=== PATIENT | female | born 1945 | race Caucasian/White ===

== ENCOUNTER 2018-07-08 00:51 | Observation (INO) | payer BC ==
[~2018-07-08] VITALS: Ht 162.6 cm; Wt 71.8 kg
[~2018-07-08 00:51] MED LIST: ACET325; AMIT50; AMIT75 PO; AMITRIPTYLINE; Ativan1 MG PO; Boniva150 MG; Boniva150 MG PO; CIPR500 PO; CYCL10 PO; Cymbalta60 MG PO; DIAZ5 PO; DIPATR PO; DIPH50 PO; DULO30; DULO60; GABA300; GABA800 PO; HYDACE5; HYDACE5 PO; HYDMOR2 PO; LANS30EC PO; LEVFLO500; LISI5; MELO7.5 PO; METPRE4DP PO; METR500; OMEP20ER PO; OMEPRAZOLE MAGN20 MG PO; ONDA8ODT MM; OXYACE5T PO; OXYC1TAB11; PRAM.5 PO; PRED20 PO; PREG150 PO; PROM25 PO; RANI150 PO; RESTLESS LEG MED; RXONDA4ODT MM; SACC250C; TIAG4 PO
[2018-07-08] MEDS ORDERED: PREG100 PO (01:09)
[2018-07-08 01:20] LABS: BASOPHILS ABSOLUTE AUTO 0.06 K/mm3 (0.00-0.23); BASOPHILS PERCENT AUTO 1 % (0-2); EOSINOPHILS ABSOLUTE AUTO 0.35 K/mm3 (0.00-0.68); EOSINOPHILS PERCENT AUTO 4 % (0-6); Hemoglobin 13.9 g/dL (11.5-16.0); IMMATURE GRAN ABSOLUTE AUTO 0.03 K/mm3 (0.00-0.10); IMMATURE GRAN PERCENT AUTO 0 % (0-1); LYMPHOCYTES PERCENT AUTO 33 % (21-46); MONOCYTES ABSOLUTE AUTO 0.79 K/mm3 (0.16-1.47); MONOCYTES PERCENT AUTO 8 % (4-13); Mean Corpuscular HGB 28.4 pg (26.0-34.0); Mean Corpuscular HGB Conc 30.9 g/dL (31.5-36.5); Mean Corpuscular Volume 92 fL (80-100); NEUTROPHILS ABSOLUTE AUTO 5.11 K/mm3 (1.96-9.15); NEUTROPHILS PERCENT AUTO 54 % (41-73); Platelet Count 277 K/mm3 (150-400); RDW Coefficient Variation 15.4 % (11.7-14.2); White Blood Cell Count 9.44 K/mm3 (4.00-11.30)
[2018-07-08 01:40] LABS: Alanine Aminotransfer (ALT/SGP 27 U/L (12-78); Albumin, Blood 4.1 g/dL (3.4-5.0); Albumin/Globulin Ratio 1.1 (0.8-1.8); Alk Phos 73 U/L (50-136); Anion Gap 10 mmol/L (6-16); Aspartate Aminotrans (AST/SGOT 16 U/L (12-37); Bilirubin, Total 0.6 mg/dL (0.1-1.0); Blood Urea Nitrogen 14 mg/dL (8-24); Bun/Creatinine Ratio 17.7 (12.0-20.0); CO2, Blood 22 mmol/L (21-32); Calcium, Blood 8.7 mg/dL (8.5-10.1); Chloride, Blood 110 mmol/L (98-108); Creatinine, Blood 0.79 mg/dL (0.40-1.00); Globulin, Blood 3.9 g/dL (2.2-4.0); Glomerular Filtration Rate >60 (60-); Glucose, Blood 91 mg/dL (70-99); Potassium, Blood 3.7 mmol/L (3.5-5.5); Sodium, Blood 142 mmol/L (136-145); Troponin I <0.015 ng/mL (0.000-0.040)
--- NOTE | 2018-07-08 06:48 | NUR ---
*SHIFT SUMMARY* PATIENT IS ALERT AND ORIENTED. ARRIVED TO ROOM FROM ER VIA STRETCHER. PATIENT AMBULATED FROM STRETCHER TO BED AND THEN BATHROOM. GAIT STEADY. NO COMPLAINTS OF CHEST PAIN OR SOB. PATIENT HAS TELE ON, NSR AT 72. PT ORIENTED TO ROOM. CALL LIGHT IN REACH. BED LOWERED AND LOCKED.
[2018-07-08] MEDS ORDERED: ASPI81CH PO (13:11)
--- NOTE | 2018-07-08 13:35 | NUR ---
SHIFT SUMMARY/DC PT HAS HAD NO ACUTE CHANGES THIS SHIFT, NO CP, MEDICATED 1X FOR CHRONIC PAIN. REVIEWED DC INSTRUCTIONS, PT VERBALIZED UNDERSTANDING. PT WALKED OUT FOR DC W/DAUGHTER & GRANDDAUGHTER @ 1330.
== END 2018-07-08 13:39 | disposition home or self-care (01) ==
LOC: ER 00:51 → MEDS 00:52 → ENPENDDIS 12:28 → MEDS 13:39
PROVIDERS: Emergency Medicine; ADMIT Hospitalist
DX: R07.89 Other chest pain (principal); G25.81 Restless legs syndrome; M79.7 Fibromyalgia; M19.90 Unspecified osteoarthritis, unspecified site; F32.9 Major depressive disorder, single episode, unspecified; K21.9 Gastro-esophageal reflux disease without esophagitis; Z88.8 Allergy status to other drugs, medicaments and biological substances; Z88.5 Allergy status to narcotic agent; Z79.899 Other long term (current) drug therapy; Z98.84 Bariatric surgery status; Z87.19 Personal history of other diseases of the digestive system
CPT/HCPCS: 36415; 71045; 71275; 74175; 80053; 83690; 84484; 85025; 87070; 87081; 93005; 93010; 96372; G0378; J1650; J2405; Q9967

== ENCOUNTER → 2019-08-12 | Outpatient (CLI) | payer BC, OTHER ==
[~2019-08-12] MED LIST changes: +ASPI81CH PO; +PREG100 PO
[2019-08-12 20:19] LABS: Influenza A Negative (NEGATIVE); Influenza B Negative (NEGATIVE)
== END | disposition home or self-care (01) ==
LOC: LAB 17:42 → LAB SHORT 17:42
PROVIDERS: Nurse Practitioner Family
DX: R05 Cough (principal)
CPT/HCPCS: 87804

== ENCOUNTER 2020-04-27 12:48 | Emergency (ER) | payer BC ==
[~2020-04-27] VITALS: Ht 162.6 cm; Wt 72.1 kg
[~2020-04-27 12:48] MED LIST changes: -ASPI81CH PO; +Aspirin EC81 MG PO
[2020-04-27] MEDS ORDERED: OXYCODONE-ACET1 EAC2 PO (14:18)
[2020-04-27] MEDS ORDERED: AMLODIPINE BESYL5 MG PO (14:18)
[2020-04-27] MEDS ORDERED: PRAMIPEXOLE DIHY1 M1 PO (14:18)
[2020-04-27] MEDS ORDERED: Percocet 5-3251 EACH PO (15:10)
== END 2020-04-27 15:34 | disposition home or self-care (01) ==
LOC: ER 12:48
DX: S52.531A Colles' fracture of right radius, initial encounter for closed fracture (principal); S61.511A Laceration without foreign body of right wrist, initial encounter; S50.01XA Contusion of right elbow, initial encounter; Z88.8 Allergy status to other drugs, medicaments and biological substances; Z88.5 Allergy status to narcotic agent; Z79.82 Long term (current) use of aspirin; Z79.899 Other long term (current) drug therapy; Z87.891 Personal history of nicotine dependence; W17.89XA Other fall from one level to another, initial encounter; Y92.008 Other place in unspecified non-institutional (private) residence as the place of occurrence of the external cause
CPT/HCPCS: 29125; 73080; 73110; 96365-59; 96375-59; 99283-25; J0690; J1170; J2405; L3917

== ENCOUNTER 2020-05-03 10:31 | Day surgery (SDC) | payer BC ==
[~2020-05-03] VITALS: Ht 160 cm; Wt 73.6 kg
[~2020-05-03 10:31] MED LIST changes: +AMLODIPINE BESYL5 MG PO; +OXYCODONE-ACET1 EAC2 PO; +PRAMIPEXOLE DIHY1 M1 PO; +Percocet 5-3251 EACH PO
--- NOTE | 2020-05-03 12:16 | NUR ---
05/03/20 1216 Savana Alston SURGEON AWARE OF OPEN AREA ON RIGHT WRIST. SUTURE REMOVED PRIOR TO PREP.
--- NOTE | 2020-05-03 14:22 | NUR ---
05/03/20 1422 FLOWER MADISON PT TO STEP DOWN VIA BED. SBA TO RECLINER. VSS - PT ON ACCESSORY O2 VIA NON REBREATHER NEEDED TO MAINTANI O2 SATS >92%. TOLERATING PO INTAKE AND DENIES NAUSEA AT THIS TIME. PT REPORTING SEVERE PAIN TO RIGHT WRIST. MEDICATED PER ORDERS WITH IV FENTANYL AND PO NORCO. ENGAGED IN DC TEACHING AND ALL QUESTIONS ASKED AND ANSWERED. PT REPORTS PAIN IS IMPROVING. IS AGREEABLE TO GOING HOME.
== END 2020-05-03 14:15 | disposition home or self-care (01) ==
LOC: ORSCSDS 10:31
PROVIDERS: Orthopaedic Surgery
PROC: 0JBG0ZZ Excision of Right Lower Arm Subcutaneous Tissue and Fascia, Open Approach (ICD-10-PCS; principal; 2020-05-03 12:45)
PROC: 0PSH04Z Reposition Right Radius with Internal Fixation Device, Open Approach (ICD-10-PCS; principal; 2020-05-03 12:45)
DX: S52.551A Other extraarticular fracture of lower end of right radius, initial encounter for closed fracture (principal); S61.521A Laceration with foreign body of right wrist, initial encounter; I10 Essential (primary) hypertension; Z87.891 Personal history of nicotine dependence; K21.9 Gastro-esophageal reflux disease without esophagitis; Z79.899 Other long term (current) drug therapy
CPT/HCPCS: A9270; C1713; J0690; J1100; J2250; J2405; J2704; J2795; J3010; J7030; J7120

== ENCOUNTER 2020-05-27 14:38 | Emergency (ER) | payer BC, OTHER ==
[~2020-05-27] VITALS: Ht 157.5 cm; Wt 72.6 kg
[2020-05-27 15:09] LABS: BASOPHILS ABSOLUTE AUTO 0.02 K/mm3 (0.00-0.23); BASOPHILS PERCENT AUTO 0 % (0-2); EOSINOPHILS ABSOLUTE AUTO 0.01 K/mm3 (0.00-0.68); EOSINOPHILS PERCENT AUTO 0 % (0-6); Hematocrit 39.9 % (33.0-51.0); Hemoglobin 13.5 g/dL (11.5-16.0); IMMATURE GRAN ABSOLUTE AUTO 0.04 K/mm3 (0.00-0.10); IMMATURE GRAN PERCENT AUTO 1 % (0-1); LYMPHOCYTES ABSOLUTE AUTO 1.31 K/mm3 (0.84-5.20); LYMPHOCYTES PERCENT AUTO 18 % (21-46); MONOCYTES ABSOLUTE AUTO 0.33 K/mm3 (0.16-1.47); MONOCYTES PERCENT AUTO 5 % (4-13); Mean Corpuscular HGB 30.2 pg (26.0-34.0); Mean Corpuscular HGB Conc 33.8 g/dL (31.5-36.5); Mean Corpuscular Volume 89 fL (80-100); Mean Platelet Volume 10.5 fL (9.1-12.4); NEUTROPHILS ABSOLUTE AUTO 5.61 K/mm3 (1.96-9.15); NEUTROPHILS PERCENT AUTO 77 % (41-73); Platelet Count 245 K/mm3 (150-400); RDW Coefficient Variation 13.7 % (11.7-14.2); RDW Standard Deviation 44.4 fL (35.1-46.3); Red Blood Cell Count 4.47 M/mm3 (3.80-5.20); White Blood Cell Count 7.32 K/mm3 (4.00-11.30)
[2020-05-27 15:37] LABS: Alanine Aminotransfer (ALT/SGP 25 U/L (12-78); Albumin, Blood 3.9 g/dL (3.4-5.0); Alk Phos 120 U/L (50-136); Anion Gap 7 mmol/L (6-16); Aspartate Aminotrans (AST/SGOT 25 U/L (12-37); Bilirubin, Total 1.4 mg/dL (0.1-1.0); Blood Urea Nitrogen 9 mg/dL (8-24); Bun/Creatinine Ratio 13.5 (12.0-20.0); CO2, Blood 25 mmol/L (21-32); Calcium, Blood 9.5 mg/dL (8.5-10.1); Chloride, Blood 104 mmol/L (98-108); Creatinine, Blood 0.67 mg/dL (0.40-1.00); Globulin, Blood 3.9 g/dL (2.2-4.0); Glomerular Filtration Rate >60 (60-); Glucose, Blood 139 mg/dL (70-99); Potassium, Blood 4.1 mmol/L (3.5-5.5); Sodium, Blood 136 mmol/L (136-145); Total Protein, Blood 7.8 g/dL (6.4-8.2); Troponin I <0.015 ng/mL (0.000-0.040)
[2020-05-27 15:37] LABS: Source, Urine Clean Catch
[2020-05-27 16:07] LABS: Appearance, Urine Clear (Clear); Bilirubin, Urine Neg (Neg); Blood, Urine 1+ (Neg); Color, Urine Yellow (P-Yellow); Glucose Qualitative, Urine Neg (Neg); Ketones, Urine 2+ (Neg); Leukocyte Esterase, Urine 1+ (Neg); Nitrite, Urine Neg (Neg); Protein, Urine 2+ (Neg); Urobilinogen, Urine 1+ (Normal); pH, Urine 6.5 (5.0-8.0)
[2020-05-27 16:17] LABS: Bacteria Few /hpf; Red Blood Cells, Urine 0-2 /hpf (0-2); Squamous Epithelial Cells Rare /hpf (Few)
[2020-05-27 18:31] LABS: Free Thyroxine 0.63 ng/dL (0.70-1.60)
[2020-05-27 18:32] LABS: Thyroid Stimulating Hormone 2.37 uIU/mL (0.360-4.800)
[2020-05-27] MEDS ORDERED: Ativan0.5 MG PO (20:19)
[2020-05-27] MEDS ORDERED: CEPH500 PO (20:31)
[2020-05-28] MEDS ORDERED: Percocet 5-3251 EACH PO (10:17)
== END 2020-05-27 20:42 | disposition home or self-care (01) ==
LOC: ER 14:38
PROVIDERS: Physician Assistant
DX: N39.0 Urinary tract infection, site not specified (principal); R53.83 Other fatigue; K21.9 Gastro-esophageal reflux disease without esophagitis; Z79.899 Other long term (current) drug therapy; Z88.5 Allergy status to narcotic agent; Z88.8 Allergy status to other drugs, medicaments and biological substances; Z79.82 Long term (current) use of aspirin; Z87.891 Personal history of nicotine dependence
CPT/HCPCS: 80053; 81001; 84439; 84443; 84484; 85025; 87086; 93005; 93010; 96361-59; 96374-59; 96375-59; 99285-25; A9270; J1885; J2060; J2405; J7030; P9612

== ENCOUNTER 2020-05-28 06:48 | Emergency (ER) | payer BC, OTHER ==
[~2020-05-28] VITALS: Ht 157.5 cm; Wt 68.0 kg
[~2020-05-28 06:48] MED LIST changes: +Ativan0.5 MG PO; +CEPH500 PO
[2020-05-28 08:32] LABS: BASOPHILS ABSOLUTE AUTO 0.02 K/mm3 (0.00-0.23); BASOPHILS PERCENT AUTO 0 % (0-2); EOSINOPHILS ABSOLUTE AUTO 0.05 K/mm3 (0.00-0.68); EOSINOPHILS PERCENT AUTO 1 % (0-6); Hematocrit 39.2 % (33.0-51.0); Hemoglobin 12.9 g/dL (11.5-16.0); IMMATURE GRAN ABSOLUTE AUTO 0.04 K/mm3 (0.00-0.10); IMMATURE GRAN PERCENT AUTO 0 % (0-1); LYMPHOCYTES ABSOLUTE AUTO 1.82 K/mm3 (0.84-5.20); LYMPHOCYTES PERCENT AUTO 20 % (21-46); MONOCYTES ABSOLUTE AUTO 0.76 K/mm3 (0.16-1.47); MONOCYTES PERCENT AUTO 8 % (4-13); Mean Corpuscular HGB 30.1 pg (26.0-34.0); Mean Corpuscular HGB Conc 32.9 g/dL (31.5-36.5); Mean Corpuscular Volume 91 fL (80-100); Mean Platelet Volume 10.4 fL (9.1-12.4); NEUTROPHILS ABSOLUTE AUTO 6.57 K/mm3 (1.96-9.15); NEUTROPHILS PERCENT AUTO 71 % (41-73); Platelet Count 225 K/mm3 (150-400); RDW Coefficient Variation 13.9 % (11.7-14.2); Red Blood Cell Count 4.29 M/mm3 (3.80-5.20); White Blood Cell Count 9.26 K/mm3 (4.00-11.30)
[2020-05-28] MEDS ORDERED: Percocet 5-3251 EACH PO (10:17)
== END 2020-05-28 10:48 | disposition home or self-care (01) ==
LOC: ER 06:48
PROVIDERS: Emergency Medicine
DX: M51.36 Other intervertebral disc degeneration, lumbar region (principal); M47.816 Spondylosis without myelopathy or radiculopathy, lumbar region; K21.9 Gastro-esophageal reflux disease without esophagitis; Z79.899 Other long term (current) drug therapy; Z88.5 Allergy status to narcotic agent; Z88.8 Allergy status to other drugs, medicaments and biological substances; Z87.891 Personal history of nicotine dependence
CPT/HCPCS: 74177; 85025; 96374-59; 96375; 99284-25; J1170; J2060; J2405; J7030; Q9967

== ENCOUNTER 2020-05-29 18:23 | Observation (INO) | payer BC, OTHER ==
[~2020-05-29] VITALS: Ht 167.6 cm; Wt 72.6 kg
[2020-05-29 18:43] LABS: BASOPHILS ABSOLUTE AUTO 0.03 K/mm3 (0.00-0.23); BASOPHILS PERCENT AUTO 0 % (0-2); EOSINOPHILS ABSOLUTE AUTO 0.05 K/mm3 (0.00-0.68); EOSINOPHILS PERCENT AUTO 1 % (0-6); Hematocrit 42.1 % (33.0-51.0); IMMATURE GRAN ABSOLUTE AUTO 0.04 K/mm3 (0.00-0.10); IMMATURE GRAN PERCENT AUTO 0 % (0-1); LYMPHOCYTES ABSOLUTE AUTO 1.73 K/mm3 (0.84-5.20); LYMPHOCYTES PERCENT AUTO 19 % (21-46); MONOCYTES ABSOLUTE AUTO 0.73 K/mm3 (0.16-1.47); MONOCYTES PERCENT AUTO 8 % (4-13); Mean Corpuscular HGB 30.3 pg (26.0-34.0); Mean Corpuscular HGB Conc 33.3 g/dL (31.5-36.5); Mean Corpuscular Volume 91 fL (80-100); NEUTROPHILS ABSOLUTE AUTO 6.51 K/mm3 (1.96-9.15); NEUTROPHILS PERCENT AUTO 72 % (41-73); Platelet Count 290 K/mm3 (150-400); RDW Coefficient Variation 13.8 % (11.7-14.2); Red Blood Cell Count 4.62 M/mm3 (3.80-5.20); White Blood Cell Count 9.09 K/mm3 (4.00-11.30)
[2020-05-29 19:01] LABS: Alanine Aminotransfer (ALT/SGP 32 U/L (12-78); Albumin, Blood 3.9 g/dL (3.4-5.0); Alk Phos 110 U/L (50-136); Anion Gap 6 mmol/L (6-16); Aspartate Aminotrans (AST/SGOT 53 U/L (12-37); Bilirubin, Total 1.1 mg/dL (0.1-1.0); Blood Urea Nitrogen 8 mg/dL (8-24); Bun/Creatinine Ratio 10.8 (12.0-20.0); CO2, Blood 24 mmol/L (21-32); Calcium, Blood 9.1 mg/dL (8.5-10.1); Chloride, Blood 106 mmol/L (98-108); Creatinine, Blood 0.74 mg/dL (0.40-1.00); Globulin, Blood 3.9 g/dL (2.2-4.0); Glomerular Filtration Rate >60 (60-); Glucose, Blood 131 mg/dL (70-99); Potassium, Blood 3.5 mmol/L (3.5-5.5); Sodium, Blood 136 mmol/L (136-145); Total Protein, Blood 7.8 g/dL (6.4-8.2)
[2020-05-29 21:44] LABS: U Amphetamine Screen Not Detected; U Barbituate Screen Not Detected; U Benzodiazapine Screen DETECTED; U Buprenorphine Screen Not Detected; U Cannabinoids Screen Not Detected; U Cocaine Screen Not Detected; U Methadone Screen Not Detected; U Methamphetamine Screen Not Detected; U Opiates Screen Not Detected; U Oxycodone Screen DETECTED; U Phencyclidine Screen Not Detected; U Propoxyphene Screen Not Detected
[2020-05-30 05:45] LABS: BASOPHILS ABSOLUTE AUTO 0.02 K/mm3 (0.00-0.23); BASOPHILS PERCENT AUTO 0 % (0-2); EOSINOPHILS ABSOLUTE AUTO 0.05 K/mm3 (0.00-0.68); EOSINOPHILS PERCENT AUTO 1 % (0-6); Hematocrit 39.2 % (33.0-51.0); Hemoglobin 12.7 g/dL (11.5-16.0); IMMATURE GRAN ABSOLUTE AUTO 0.04 K/mm3 (0.00-0.10); IMMATURE GRAN PERCENT AUTO 1 % (0-1); LYMPHOCYTES ABSOLUTE AUTO 1.39 K/mm3 (0.84-5.20); LYMPHOCYTES PERCENT AUTO 18 % (21-46); MONOCYTES ABSOLUTE AUTO 0.76 K/mm3 (0.16-1.47); MONOCYTES PERCENT AUTO 10 % (4-13); Mean Corpuscular HGB 29.7 pg (26.0-34.0); Mean Corpuscular HGB Conc 32.4 g/dL (31.5-36.5); Mean Corpuscular Volume 92 fL (80-100); Mean Platelet Volume 10.3 fL (9.1-12.4); NEUTROPHILS ABSOLUTE AUTO 5.68 K/mm3 (1.96-9.15); NEUTROPHILS PERCENT AUTO 72 % (41-73); Platelet Count 232 K/mm3 (150-400); RDW Coefficient Variation 13.9 % (11.7-14.2); RDW Standard Deviation 46.3 fL (35.1-46.3); Red Blood Cell Count 4.27 M/mm3 (3.80-5.20); White Blood Cell Count 7.94 K/mm3 (4.00-11.30)
[2020-05-30 06:05] LABS: Alanine Aminotransfer (ALT/SGP 31 U/L (12-78); Albumin, Blood 3.4 g/dL (3.4-5.0); Alk Phos 98 U/L (50-136); Anion Gap 7 mmol/L (6-16); Aspartate Aminotrans (AST/SGOT 49 U/L (12-37); Blood Urea Nitrogen 9 mg/dL (8-24); Bun/Creatinine Ratio 11.6 (12.0-20.0); CO2, Blood 25 mmol/L (21-32); Calcium, Blood 8.7 mg/dL (8.5-10.1); Chloride, Blood 107 mmol/L (98-108); Creatinine, Blood 0.78 mg/dL (0.40-1.00); Globulin, Blood 3.5 g/dL (2.2-4.0); Glomerular Filtration Rate >60 (60-); Glucose, Blood 109 mg/dL (70-99); Potassium, Blood 3.3 mmol/L (3.5-5.5); Sodium, Blood 139 mmol/L (136-145); Total Protein, Blood 6.9 g/dL (6.4-8.2)
[2020-05-30] MEDS ORDERED: ROPINIROLE HCL1 MG PO (11:48)
[2020-05-30] MEDS ORDERED: PREGABALIN100 MG PO (11:48)
[2020-05-30 12:59] LABS: Source, Urine Clean Catch
[2020-05-30 13:08] LABS: Appearance, Urine Clear (Clear); Blood, Urine Neg (Neg); Color, Urine Yellow (P-Yellow); Glucose Qualitative, Urine Neg (Neg); Ketones, Urine Neg (Neg); Leukocyte Esterase, Urine Neg (Neg); Nitrite, Urine Neg (Neg); Protein, Urine 2+ (Neg); Urobilinogen, Urine 2+ (Normal)
[2020-05-30 13:32] LABS: Bilirubin, Urine 1+ (Neg)
[2020-05-30 13:33] LABS: Bacteria Rare /hpf; Mucus Light (0-Heavy); Red Blood Cells, Urine 0-2 /hpf (0-2); Squamous Epithelial Cells Few /hpf (Few); White Blood Cells, Urine 0-2 /hpf (0-5)
[2020-05-30] MEDS ORDERED: Percocet 5-3251 EACH PO (17:32)
[2020-05-30] MEDS ORDERED: DULO30 PO (17:34)
[2020-05-30] MEDS ORDERED: DULO60 PO (17:35)
[2020-05-30] MEDS ORDERED: BENZ100A PO (17:35)
[2020-05-30] MEDS ORDERED: AMIT75 PO (17:36)
--- NOTE | 2020-05-30 17:56 | NUR ---
PATIENT IS ALERT AND ORIENTED AND COOPERATIVE WITH CARE. THE PATIENT HAS BENE TREATED FOR PAIN PER EMAR. TREATED FOR HYPERTENSION PER EMAR. THE PATIENT'S FAMILY WAS AT THE BEDSIDE TODAY. THE PATIENT HAS TOLERATED WATER AND JELLO. WILL CONTINUE TO MONITOR.
[2020-05-31 05:11] LABS: BASOPHILS ABSOLUTE AUTO 0.03 K/mm3 (0.00-0.23); BASOPHILS PERCENT AUTO 0 % (0-2); EOSINOPHILS ABSOLUTE AUTO 0.11 K/mm3 (0.00-0.68); EOSINOPHILS PERCENT AUTO 1 % (0-6); Hematocrit 37.6 % (33.0-51.0); Hemoglobin 12.4 g/dL (11.5-16.0); IMMATURE GRAN ABSOLUTE AUTO 0.04 K/mm3 (0.00-0.10); IMMATURE GRAN PERCENT AUTO 0 % (0-1); LYMPHOCYTES ABSOLUTE AUTO 2.45 K/mm3 (0.84-5.20); LYMPHOCYTES PERCENT AUTO 25 % (21-46); MONOCYTES ABSOLUTE AUTO 1.08 K/mm3 (0.16-1.47); MONOCYTES PERCENT AUTO 11 % (4-13); Mean Corpuscular HGB 29.8 pg (26.0-34.0); Mean Corpuscular Volume 90 fL (80-100); Mean Platelet Volume 10.2 fL (9.1-12.4); NEUTROPHILS ABSOLUTE AUTO 6.07 K/mm3 (1.96-9.15); NEUTROPHILS PERCENT AUTO 62 % (41-73); Platelet Count 255 K/mm3 (150-400); RDW Coefficient Variation 13.8 % (11.7-14.2); RDW Standard Deviation 45.1 fL (35.1-46.3); Red Blood Cell Count 4.16 M/mm3 (3.80-5.20); White Blood Cell Count 9.78 K/mm3 (4.00-11.30)
[2020-05-31 05:42] LABS: Alanine Aminotransfer (ALT/SGP 31 U/L (12-78); Albumin, Blood 3.5 g/dL (3.4-5.0); Alk Phos 97 U/L (50-136); Anion Gap 7 mmol/L (6-16); Aspartate Aminotrans (AST/SGOT 43 U/L (12-37); Bilirubin, Total 1.1 mg/dL (0.1-1.0); Blood Urea Nitrogen 10 mg/dL (8-24); Bun/Creatinine Ratio 13.1 (12.0-20.0); C-REACTIVE PROTEIN, EXT RANGE 0.347 mg/dL (0.000-0.300); CO2, Blood 25 mmol/L (21-32); Calcium, Blood 8.5 mg/dL (8.5-10.1); Chloride, Blood 105 mmol/L (98-108); Creatinine, Blood 0.76 mg/dL (0.40-1.00); Globulin, Blood 3.5 g/dL (2.2-4.0); Glomerular Filtration Rate >60 (60-); Glucose, Blood 102 mg/dL (70-99); Sodium, Blood 137 mmol/L (136-145); Triiodothyronine, Free 1.48 pg/mL (2.18-3.98)
[2020-05-31 14:11] LABS: ANA DIRECT Positive (Negative); ANTI-DNA (DS) AB QN 1 IU/mL (0-9); RNP ANTIBODIES >8.0 AI (0.0-0.9); SJOGREN'S ANTI-SS-A <0.2 AI (0.0-0.9); SJOGREN'S ANTI-SS-B <0.2 AI (0.0-0.9); SMITH ANTIBODIES <0.2 AI (0.0-0.9)
--- NOTE | 2020-05-31 15:51 | NUR ---
Spiritual care visit conducted. Patient is resting but will chime in on conversation every now and then. Patient's spouse, Shade, tells me about his concerns regarding patient's health and what he hopes happens moving forward (mainly to find the cause of her pain and address it). Shade then talks about his careers in truck unloader, building hot rods and powder coating. He shares about his three grown children and their families. He also talks about their [employer]ist jacquelin and the strength patient gets from it. I normalize their experience, reinforce helpful attitudes and provide therapeutic listening and prayer. Patient responds well and shows signs of increased peace. I will continue to remain available to patient and family.
--- NOTE | 2020-05-31 20:00 | NUR ---
late entry for 62905/31/20. 74 year old female admitted with acute back pain & altered loc. She had MRIS of spine & has DDD with new pain reported in last week. PT slightly confused & calls for pain meds at 3/10 rating. She has fibromyalgia & lupus on multiple meds to treat at home. Most of meds held to promote LOC clearing. Kpad provided & PT on toradol & 1 percocet 5 mg and 5 mg flexeril to treat acute back pain. Poor oral intake fluids & aleternatives offered. Recent fall with rt wrist fx with surgical repair per PT incisions healed. Denies acute pain to rt wrist. Fall precautions continued.
--- NOTE | 2020-06-01 04:22 | NUR ---
74 year old Female continues on fall precautions after fall with rt wrist fx 3 weeks prior to admission. 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 Appetite continues very poor. PT had BM yesterday & voids more than prior shift. Up to bathroom with steady gait. Medicated with PRN percoset 5 mg x 2 in addition to scheduled toradol & flexeril 5 mg. Less confused flat affect. Has supportive family, 3 DTRs & Spouse.
[2020-06-01 04:41] LABS: BASOPHILS ABSOLUTE AUTO 0.04 K/mm3 (0.00-0.23); BASOPHILS PERCENT AUTO 1 % (0-2); EOSINOPHILS ABSOLUTE AUTO 0.31 K/mm3 (0.00-0.68); EOSINOPHILS PERCENT AUTO 4 % (0-6); Hematocrit 35.7 % (33.0-51.0); Hemoglobin 11.6 g/dL (11.5-16.0); IMMATURE GRAN ABSOLUTE AUTO 0.02 K/mm3 (0.00-0.10); IMMATURE GRAN PERCENT AUTO 0 % (0-1); LYMPHOCYTES ABSOLUTE AUTO 2.33 K/mm3 (0.84-5.20); LYMPHOCYTES PERCENT AUTO 33 % (21-46); MONOCYTES ABSOLUTE AUTO 0.72 K/mm3 (0.16-1.47); MONOCYTES PERCENT AUTO 10 % (4-13); Mean Corpuscular HGB 29.9 pg (26.0-34.0); Mean Corpuscular HGB Conc 32.5 g/dL (31.5-36.5); Mean Corpuscular Volume 92 fL (80-100); Mean Platelet Volume 9.9 fL (9.1-12.4); NEUTROPHILS ABSOLUTE AUTO 3.61 K/mm3 (1.96-9.15); NEUTROPHILS PERCENT AUTO 51 % (41-73); Platelet Count 216 K/mm3 (150-400); RDW Coefficient Variation 13.9 % (11.7-14.2); RDW Standard Deviation 46.4 fL (35.1-46.3); Red Blood Cell Count 3.88 M/mm3 (3.80-5.20); White Blood Cell Count 7.03 K/mm3 (4.00-11.30)
[2020-06-01 05:01] LABS: Alanine Aminotransfer (ALT/SGP 28 U/L (12-78); Albumin, Blood 3.2 g/dL (3.4-5.0); Alk Phos 86 U/L (50-136); Anion Gap 5 mmol/L (6-16); Aspartate Aminotrans (AST/SGOT 39 U/L (12-37); Bilirubin, Total 1.1 mg/dL (0.1-1.0); Blood Urea Nitrogen 9 mg/dL (8-24); Bun/Creatinine Ratio 11.1 (12.0-20.0); CO2, Blood 27 mmol/L (21-32); Calcium, Blood 8.3 mg/dL (8.5-10.1); Chloride, Blood 104 mmol/L (98-108); Creatinine, Blood 0.81 mg/dL (0.40-1.00); Globulin, Blood 3.1 g/dL (2.2-4.0); Glomerular Filtration Rate >60 (60-); Glucose, Blood 94 mg/dL (70-99); Potassium, Blood 3.3 mmol/L (3.5-5.5); Sodium, Blood 136 mmol/L (136-145); Total Protein, Blood 6.3 g/dL (6.4-8.2)
--- NOTE | 2020-06-01 18:22 | NUR ---
PT HAS BEEN DOING BETTER THIS SHIFT. PATIENT HAVING BETTER RESULTS WITH TORADOL TO RELIEVE HER BACK PAIN. PT IS ALERT AND ORIENTED AND ABLE TO EXPRESS ANY NEEDS. AT BEDSIDE. PT WAS ABLE TO SHOWER SELF THIS SHIFT. NO ACUTE CHANGES TO PT. CALL LIGHT WITHIN REACH.
[2020-06-02 05:31] LABS: Alanine Aminotransfer (ALT/SGP 26 U/L (12-78); Albumin, Blood 3.1 g/dL (3.4-5.0); Alk Phos 84 U/L (50-136); Anion Gap 7 mmol/L (6-16); Aspartate Aminotrans (AST/SGOT 31 U/L (12-37); Bilirubin, Total 0.9 mg/dL (0.1-1.0); Blood Urea Nitrogen 13 mg/dL (8-24); CO2, Blood 25 mmol/L (21-32); Calcium, Blood 8.3 mg/dL (8.5-10.1); Chloride, Blood 106 mmol/L (98-108); Creatinine, Blood 0.81 mg/dL (0.40-1.00); Glomerular Filtration Rate >60 (60-); Glucose, Blood 91 mg/dL (70-99); Potassium, Blood 3.4 mmol/L (3.5-5.5); Sodium, Blood 138 mmol/L (136-145); Total Protein, Blood 6.1 g/dL (6.4-8.2)
--- NOTE | 2020-06-02 05:32 | NUR ---
PT continues with CO mod back pain despite toradol 30 mg IV Q 6 hours. Med with percocet 5 mg x 2 with helpful effect. Able to aMBULATE WELL INDEP WITH STEADY GAIT. pt HAS LUPUS X YEARS KNOWN. SHE CONTINUES TO HAVE POOR APPETITE BUT BETTER THAN 2 PRIOR NIGHTS. She is voiding having BMS & denies nausea.
[2020-06-02] MEDS ORDERED: CYCLOBENZAPRINE5 MG PO (10:57)
[2020-06-02] MEDS ORDERED: EUTHYROX50 MCG PO (10:57)
[2020-06-02] MEDS ORDERED: LIOT5 PO (10:58)
[2020-06-02] MEDS ORDERED: LIDOCAINE1 EAC1 TOP (10:58)
--- NOTE | 2020-06-02 11:14 | NUR ---
DISCHARGE INSTRUCTIONS REVIEWED WITH PT. IV DC'D INTACT. RX FAXED TO [facility] [address] AND HARD SCRIPT FOR PERCOCET GIVEN TO PT. PT UP INDEP TO BATHROOM AND ONLY MINIMAL PAIN THIS AM TO LOWER BACK. PT HAS AN APPT SATURDAY WITH NEW PCP EMILIANO. PT AWAITING RIDE HOME AT THIS TIME.
--- NOTE | 2020-06-02 11:30 | NUR ---
PT DC'D HOME AT 1125, ESCORTED OUT VIA W/C TO D/C WITH .
== END 2020-06-02 11:26 | disposition home health service (06) ==
LOC: ER 18:23 → ERHOLD 18:24 → MEDS 05-30 00:40 → ERHOLD 05-30 00:40 → ER 05-30 00:40 → MEDS 05-30 14:36 → ERHOLD 05-30 14:36 → MEDS 06-02 11:26
PROVIDERS: Emergency Medicine; Internal Medicine; Physician Assistant; ADMIT Physician Assistant
DX: G93.40 Encephalopathy, unspecified (principal); M54.5 Low back pain; F32.9 Major depressive disorder, single episode, unspecified; M79.7 Fibromyalgia; I10 Essential (primary) hypertension; R79.89 Other specified abnormal findings of blood chemistry; G25.81 Restless legs syndrome; E86.0 Dehydration; Z88.5 Allergy status to narcotic agent; Z88.8 Allergy status to other drugs, medicaments and biological substances; Z87.891 Personal history of nicotine dependence
CPT/HCPCS: 36415; 70450; 72146; 72158; 80053; 81001; 83605; 84443; 84481; 85025; 85651; 86038; 86140; 86225; 86235; 96372; 96374-59; 96375; 96376; 97110; 97116; 97161; 97165; 97535; 99285-25; A9270; A9579; G0378; J0360; J1170; J1650; J1885; J2405; J7030; Q2038

== ENCOUNTER 2020-09-13 18:16 | Emergency (ER) | payer BC, OTHER ==
[~2020-09-13] VITALS: Ht 167.6 cm; Wt 65.8 kg
[~2020-09-13 18:16] MED LIST changes: +BENZ100A PO; +CYCLOBENZAPRINE5 MG PO; +DULO30 PO; +DULO60 PO; +EUTHYROX50 MCG PO; +LIDOCAINE1 EAC1 TOP; +LIOT5 PO; +PREGABALIN100 MG PO; +ROPINIROLE HCL1 MG PO
[2020-09-13 19:04] LABS: BASOPHILS ABSOLUTE AUTO 0.01 K/mm3 (0.00-0.23); BASOPHILS PERCENT AUTO 0 % (0-2); EOSINOPHILS ABSOLUTE AUTO 0.01 K/mm3 (0.00-0.68); EOSINOPHILS PERCENT AUTO 0 % (0-6); Hematocrit 41.9 % (33.0-51.0); Hemoglobin 13.8 g/dL (11.5-16.0); IMMATURE GRAN ABSOLUTE AUTO 0.02 K/mm3 (0.00-0.10); IMMATURE GRAN PERCENT AUTO 0 % (0-1); LYMPHOCYTES PERCENT AUTO 22 % (21-46); MONOCYTES PERCENT AUTO 10 % (4-13); Mean Corpuscular HGB 30.4 pg (26.0-34.0); Mean Corpuscular HGB Conc 32.9 g/dL (31.5-36.5); Mean Corpuscular Volume 92 fL (80-100); Mean Platelet Volume 10.9 fL (9.1-12.4); NEUTROPHILS ABSOLUTE AUTO 3.31 K/mm3 (1.96-9.15); NEUTROPHILS PERCENT AUTO 67 % (41-73); Platelet Count 161 K/mm3 (150-400); RDW Coefficient Variation 14.2 % (11.7-14.2); RDW Standard Deviation 48.2 fL (35.1-46.3); Red Blood Cell Count 4.54 M/mm3 (3.80-5.20); White Blood Cell Count 4.95 K/mm3 (4.00-11.30)
[2020-09-13 19:24] LABS: Alanine Aminotransfer (ALT/SGP 33 U/L (12-78); Albumin, Blood 3.6 g/dL (3.4-5.0); Albumin/Globulin Ratio 0.8 (0.8-1.8); Alk Phos 101 U/L (50-136); Anion Gap 7 mmol/L (6-16); Aspartate Aminotrans (AST/SGOT 38 U/L (12-37); Bilirubin, Total 0.6 mg/dL (0.1-1.0); Blood Urea Nitrogen 7 mg/dL (8-24); Bun/Creatinine Ratio 8.3 (12.0-20.0); CO2, Blood 23 mmol/L (21-32); Calcium, Blood 9.3 mg/dL (8.5-10.1); Chloride, Blood 109 mmol/L (98-108); Creatinine, Blood 0.85 mg/dL (0.40-1.00); Globulin, Blood 4.4 g/dL (2.2-4.0); Glomerular Filtration Rate >60 (60-); Glucose, Blood 151 mg/dL (70-99); Potassium, Blood 3.7 mmol/L (3.5-5.5); Sodium, Blood 139 mmol/L (136-145); Troponin I <0.015 ng/mL (0.000-0.040)
== END 2020-09-13 21:41 | disposition left against medical advice (07) ==
LOC: ER 18:16
PROVIDERS: Emergency Medicine
DX: Z53.21 Procedure and treatment not carried out due to patient leaving prior to being seen by health care provider (principal)
CPT/HCPCS: 36415; 71046; 80053; 83690; 84484; 85025; 93005; 93010; 99283-25

== ENCOUNTER 2021-04-04 07:11 | Day surgery (SDC) | payer BC ==
[~2021-04-04] VITALS: Ht 160 cm; Wt 71.3 kg
== END 2021-04-04 10:36 | disposition home or self-care (01) ==
LOC: ORSCSDS 07:11
PROVIDERS: Orthopaedic Surgery
PROC: 0XP60YZ Removal of Other Device from Right Upper Extremity, Open Approach (ICD-10-PCS; principal; 2021-04-04 08:30)
DX: T84.84XA Pain due to internal orthopedic prosthetic devices, implants and grafts, initial encounter (principal); I10 Essential (primary) hypertension; M79.7 Fibromyalgia; M19.90 Unspecified osteoarthritis, unspecified site; Z79.82 Long term (current) use of aspirin; Z79.899 Other long term (current) drug therapy
CPT/HCPCS: 93005; 93010; A9270; J0690; J1100; J1885; J2405; J2704; J2795; J3010; J7120

== ENCOUNTER 2021-05-02 18:12 | Inpatient (IN) | payer MEDICARE, BC ==
[~2021-05-02] VITALS: Ht 162.6 cm; Wt 73.2 kg
[~2021-05-02 18:12] MED LIST changes: -EUTHYROX50 MCG PO
[2021-05-02 19:26] LABS: BASOPHILS ABSOLUTE AUTO 0.03 K/mm3 (0.00-0.23); BASOPHILS PERCENT AUTO 0 % (0-2); EOSINOPHILS ABSOLUTE AUTO 0.09 K/mm3 (0.00-0.68); EOSINOPHILS PERCENT AUTO 1 % (0-6); Hematocrit 42.4 % (33.0-51.0); Hemoglobin 13.6 g/dL (11.5-16.0); IMMATURE GRAN ABSOLUTE AUTO 0.04 K/mm3 (0.00-0.10); IMMATURE GRAN PERCENT AUTO 0 % (0-1); LYMPHOCYTES ABSOLUTE AUTO 0.65 K/mm3 (0.84-5.20); LYMPHOCYTES PERCENT AUTO 5 % (21-46); MONOCYTES ABSOLUTE AUTO 0.59 K/mm3 (0.16-1.47); MONOCYTES PERCENT AUTO 5 % (4-13); Mean Corpuscular HGB 29.2 pg (26.0-34.0); Mean Corpuscular HGB Conc 32.1 g/dL (31.5-36.5); Mean Corpuscular Volume 91 fL (80-100); Mean Platelet Volume 11.1 fL (9.1-12.4); NEUTROPHILS PERCENT AUTO 89 % (41-73); Platelet Count 254 K/mm3 (150-400); RDW Coefficient Variation 14.3 % (11.7-14.2); RDW Standard Deviation 47.8 fL (35.1-46.3); Red Blood Cell Count 4.65 M/mm3 (3.80-5.20)
[2021-05-02 19:41] LABS: Alanine Aminotransfer (ALT/SGP 33 U/L (12-78); Albumin, Blood 3.6 g/dL (3.4-5.0); Albumin/Globulin Ratio 0.9 (0.8-1.8); Alk Phos 115 U/L (50-136); Anion Gap 7 mmol/L (6-16); Aspartate Aminotrans (AST/SGOT 39 U/L (12-37); Bilirubin, Total 1.3 mg/dL (0.1-1.0); Blood Urea Nitrogen 20 mg/dL (8-24); Bun/Creatinine Ratio 25.4 (12.0-20.0); CO2, Blood 24 mmol/L (21-32); Calcium, Blood 8.8 mg/dL (8.5-10.1); Chloride, Blood 106 mmol/L (98-108); Creatinine, Blood 0.79 mg/dL (0.40-1.00); Globulin, Blood 4.2 g/dL (2.2-4.0); Glomerular Filtration Rate >60 (60-); Glucose, Blood 154 mg/dL (70-99); Potassium, Blood 4.2 mmol/L (3.5-5.5); Sodium, Blood 137 mmol/L (136-145); Total Protein, Blood 7.8 g/dL (6.4-8.2)
[2021-05-02 20:06] LABS: International Normalized Ratio 1.01; Prothrombin Time Results 10.6 Sec (9.7-11.5)
[2021-05-02] MEDS ORDERED: PROM25 PO (20:37)
[2021-05-02] MEDS ORDERED: AZIT500 PO (20:37)
[2021-05-02] MEDS ORDERED: BENZ100A PO (20:37)
--- NOTE | 2021-05-02 23:18 | NUR ---
Transfer report from DIGITAL RESEARCH ANALYSTGINNY Diaz on 75 year old Female being admitted with SBO after getting abd CT for abd pain N & V & reported fecaloid matter. Will be NPO NG tube to LISX which will need to be placed. Tele monitoring, pain meds, surgical consult. HX of MRSA 2019 will rule out, covid 19 neg. Await admission.
[2021-05-03 01:30] LABS: Source, Urine Clean Catch
[2021-05-03 01:51] LABS: Appearance, Urine Clear (Clear); Bilirubin, Urine Neg (Neg); Blood, Urine 1+ (Neg); Color, Urine Yellow (P-Yellow); Glucose Qualitative, Urine Neg (Neg); Ketones, Urine 1+ (Neg); Leukocyte Esterase, Urine Neg (Neg); Nitrite, Urine Neg (Neg); Protein, Urine 1+ (Neg); Specific Gravity, Urine 1.015 (1.003-1.022); Urobilinogen, Urine NORM (Normal)
[2021-05-03 02:11] LABS: Bacteria Rare /hpf; Red Blood Cells, Urine 0-2 /hpf (0-2); Squamous Epithelial Cells Rare /hpf (Few); White Blood Cells, Urine 0-2 /hpf (0-5)
--- NOTE | 2021-05-03 04:14 | NUR ---
PT admitted for SBO & ER was inable to place NG tube. I attempted twice in each nare & was unable to pass ng tube down ??? to anatomy? 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 Reports 1 other SBO very remote which resolved reportedly without surgical intervention or NG tube placement. bill recapitulation clerk informed of unsuccessful attempts to pass NG tube. PT has surgical consult to be called this AM. Medicated for pain & nausea with mild helpful effect. PT reports emisis at home over 6 gallons of brown fecalith matter. Possible aspirated some emisis with cxr showing possible pnemonitis. Room air, on tele SR 82.
[2021-05-03 04:47] LABS: BASOPHILS ABSOLUTE AUTO 0.04 K/mm3 (0.00-0.23); BASOPHILS PERCENT AUTO 0 % (0-2); EOSINOPHILS PERCENT AUTO 0 % (0-6); Hematocrit 41.2 % (33.0-51.0); Hemoglobin 13.2 g/dL (11.5-16.0); IMMATURE GRAN ABSOLUTE AUTO 0.03 K/mm3 (0.00-0.10); IMMATURE GRAN PERCENT AUTO 0 % (0-1); LYMPHOCYTES ABSOLUTE AUTO 1.68 K/mm3 (0.84-5.20); LYMPHOCYTES PERCENT AUTO 10 % (21-46); MONOCYTES ABSOLUTE AUTO 1.04 K/mm3 (0.16-1.47); MONOCYTES PERCENT AUTO 6 % (4-13); Mean Corpuscular HGB 29.5 pg (26.0-34.0); Mean Corpuscular Volume 92 fL (80-100); Mean Platelet Volume 10.6 fL (9.1-12.4); NEUTROPHILS ABSOLUTE AUTO 13.73 K/mm3 (1.96-9.15); NEUTROPHILS PERCENT AUTO 83 % (41-73); Platelet Count 218 K/mm3 (150-400); RDW Coefficient Variation 14.5 % (11.7-14.2); RDW Standard Deviation 48.8 fL (35.1-46.3); Red Blood Cell Count 4.47 M/mm3 (3.80-5.20); White Blood Cell Count 16.52 K/mm3 (4.00-11.30)
[2021-05-03 05:25] LABS: Alanine Aminotransfer (ALT/SGP 28 U/L (12-78); Albumin, Blood 3.4 g/dL (3.4-5.0); Albumin/Globulin Ratio 0.9 (0.8-1.8); Alk Phos 101 U/L (50-136); Anion Gap 11 mmol/L (6-16); Aspartate Aminotrans (AST/SGOT 29 U/L (12-37); Bilirubin, Total 1.2 mg/dL (0.1-1.0); Blood Urea Nitrogen 16 mg/dL (8-24); Bun/Creatinine Ratio 19.3 (12.0-20.0); CO2, Blood 22 mmol/L (21-32); Calcium, Blood 8.5 mg/dL (8.5-10.1); Chloride, Blood 106 mmol/L (98-108); Creatinine, Blood 0.83 mg/dL (0.40-1.00); Globulin, Blood 3.6 g/dL (2.2-4.0); Glomerular Filtration Rate >60 (60-); Glucose, Blood 141 mg/dL (70-99); Potassium, Blood 4.2 mmol/L (3.5-5.5); Sodium, Blood 139 mmol/L (136-145)
--- NOTE | 2021-05-03 11:52 | NUR ---
I went to visit the patient in her [facility] room 312, patient was alert and pleasant. She states she lives independent, without any DME prior to admit, with her in an RV on her daughter's property. An apartment for her and her is currently being built on the property. She states there is no preference for home health services or prison facilities. She states she still drives but, her will be able to provide transportation upon discharge. Patient has been informed of the no visitor policy. I also gave her my work cell phone number for direct communication.
--- NOTE | 2021-05-03 18:21 | NUR ---
PT SUMMARY: PT REMAINED ALERT AND ORIENTED X3 AT BASELINE. VITALS HRR SR AT 70'S ON TELE, BP SYSTOLIC 150-160'S, SATS ABOVE 95% ON RA, AFEBRILE. PT C/O BACK AND MILD ABD PAIN FOR THE SHIFT 08/22 MEDICATED WITH FENTANYL 50MCGS IV TWICE AND WAS EFFECTIVE. PT SBA FOR TRANSFERS FOR TOILETING. PT HAD SMALL BOWEL WITH XRAY WITH CONRAST HAD NAUSEA WHEN PT WAS TAKEN BACK TO THE ROOM REGLAN IV GIVEN X1 AND WAS EFFECTIVE, DR HARRIS CAME AND EVALUATED PT TODAY AND CLEARED PT FOR NO SURGICAL INTERVENTION AT THIS TIME, DIET RESUMED TO START PT ON CLEAR DIET TO ADVANCE TOLERATED. PT ALSO HAD A NORMAL BM BEFORE XRAY THEN MULTIPLE EPISODES OF DIARRHEA AFTER PO CONTRAST WAS CONSUMED. PT STATED SHE FELT MUCH BETTER AFTER HAVING BM'S. NO EMESIS REPORTED. DAUGHTER BAM DOUGHERTY WAS GIVEN UPDATE REGARDING THE PT. NO OTHER ISSUES REPORTED PT ABLE TO MAKE NEEDS KNOWN. WILL REPORT TO ONCOMING SHIFT
--- NOTE | 2021-05-04 04:38 | NUR ---
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 PT had small bowel follow through with oral contrast & had multiple stools afterward. On clear liquid diet with less than 50% taken. Mild nausea no vomiting, reglan helpful Medicated for primary low back pain x 2 with fentanyl 50 mcg x 2 with helpful effect. Kpad also provided with helpful effect.
[2021-05-04 07:55] LABS: BASOPHILS ABSOLUTE AUTO 0.03 K/mm3 (0.00-0.23); BASOPHILS PERCENT AUTO 0 % (0-2); EOSINOPHILS ABSOLUTE AUTO 0.19 K/mm3 (0.00-0.68); EOSINOPHILS PERCENT AUTO 2 % (0-6); Hematocrit 34.1 % (33.0-51.0); Hemoglobin 10.8 g/dL (11.5-16.0); IMMATURE GRAN ABSOLUTE AUTO 0.04 K/mm3 (0.00-0.10); IMMATURE GRAN PERCENT AUTO 0 % (0-1); LYMPHOCYTES ABSOLUTE AUTO 1.87 K/mm3 (0.84-5.20); LYMPHOCYTES PERCENT AUTO 19 % (21-46); MONOCYTES ABSOLUTE AUTO 0.76 K/mm3 (0.16-1.47); MONOCYTES PERCENT AUTO 8 % (4-13); Mean Corpuscular HGB 29.5 pg (26.0-34.0); Mean Corpuscular HGB Conc 31.7 g/dL (31.5-36.5); Mean Corpuscular Volume 93 fL (80-100); Mean Platelet Volume 10.8 fL (9.1-12.4); NEUTROPHILS ABSOLUTE AUTO 6.94 K/mm3 (1.96-9.15); NEUTROPHILS PERCENT AUTO 71 % (41-73); Platelet Count 200 K/mm3 (150-400); RDW Coefficient Variation 14.5 % (11.7-14.2); RDW Standard Deviation 50.3 fL (35.1-46.3); Red Blood Cell Count 3.66 M/mm3 (3.80-5.20); White Blood Cell Count 9.83 K/mm3 (4.00-11.30)
[2021-05-04 08:32] LABS: Alanine Aminotransfer (ALT/SGP 20 U/L (12-78); Albumin, Blood 2.9 g/dL (3.4-5.0); Alk Phos 79 U/L (50-136); Anion Gap 8 mmol/L (6-16); Aspartate Aminotrans (AST/SGOT 21 U/L (12-37); Bilirubin, Total 0.9 mg/dL (0.1-1.0); Blood Urea Nitrogen 7 mg/dL (8-24); Bun/Creatinine Ratio 10.3 (12.0-20.0); CO2, Blood 24 mmol/L (21-32); Calcium, Blood 8.5 mg/dL (8.5-10.1); Chloride, Blood 111 mmol/L (98-108); Creatinine, Blood 0.68 mg/dL (0.40-1.00); Glomerular Filtration Rate >60 (60-); Glucose, Blood 107 mg/dL (70-99); Potassium, Blood 3.4 mmol/L (3.5-5.5); Sodium, Blood 143 mmol/L (136-145); Total Protein, Blood 5.9 g/dL (6.4-8.2)
[2021-05-04] MEDS ORDERED: ONDA4ODT MM (16:20)
--- NOTE | 2021-05-04 16:28 | NUR ---
Per chart review with Dr. Lynne, patient is appropriate for discharge. I went to visit the patient in her room to coordinate discharge. Patient's will be providing transportation home, she states she has spoke with him recently and let him know. I scheduled a hospital follow up with Dr. Bienvenido Dougherty next week on Sunday, May 09, 2021 at 12:00 PM. Patient confirmed time and date work well for her. Felicitas states she is feeling much better, denies barriers to discharge, and feels safe to return home.
[2021-05-04] MEDS ORDERED: ROPINIROLE HCL2 M1 PO (16:33)
[2021-05-04] MEDS ORDERED: MOBIC15 MG PO (16:34)
[2021-05-04] MEDS ORDERED: EUTHYROX50 MCG PO (16:34)
[2021-05-04] MEDS ORDERED: BENADRYL25 MG PO (16:37)
[2021-05-04] MEDS ORDERED: AMLO5 PO (17:15)
[2021-05-04] MEDS ORDERED: Cyclobenzaprine5 MG PO (17:16)
--- NOTE | 2021-05-04 18:53 | NUR ---
PT EXPRESSED UNDERSTANDING OF D/C TEACHING DENEIS FURTHER QUESTIONS ABOUT DC TEACHING OR NEW MEDICATION ORDERS
== END 2021-05-04 18:34 | disposition home or self-care (01) | DRG 388 ==
LOC: ER 18:12 → MEDS 23:31
PROVIDERS: Emergency Medicine; Family Medicine; ADMIT Internal Medicine
DX: K56.609 Unspecified intestinal obstruction, unspecified as to partial versus complete obstruction (principal); J69.0 Pneumonitis due to inhalation of food and vomit; M79.7 Fibromyalgia; M32.9 Systemic lupus erythematosus, unspecified; M06.9 Rheumatoid arthritis, unspecified; G25.81 Restless legs syndrome; M81.0 Age-related osteoporosis without current pathological fracture; F32.A Depression, unspecified; M19.90 Unspecified osteoarthritis, unspecified site; K21.9 Gastro-esophageal reflux disease without esophagitis; I10 Essential (primary) hypertension; Z88.5 Allergy status to narcotic agent; Z88.8 Allergy status to other drugs, medicaments and biological substances; Z79.899 Other long term (current) drug therapy; Z90.49 Acquired absence of other specified parts of digestive tract; Z90.710 Acquired absence of both cervix and uterus; Z98.890 Other specified postprocedural states; Z87.891 Personal history of nicotine dependence; Z98.84 Bariatric surgery status; Z90.13 Acquired absence of bilateral breasts and nipples
CPT/HCPCS: 36415; 71045; 74019; 74177; 74250; 80053; 81001; 83690; 85025; 85610; 93005; 93010; 96365-59; 96375; 96376; 99285-25; A9270; C9113; J0696; J2405; J2765; J3010; J7030; Q9967

== ENCOUNTER 2023-05-14 09:47 | Observation (INO) | payer OTHER ==
[~2023-05-14] VITALS: Ht 162.6 cm; Wt 53.8 kg
[~2023-05-14 09:47] MED LIST changes: +AMLO5 PO; +AZIT500 PO; +BENADRYL25 MG PO; +Cyclobenzaprine5 MG PO; +EUTHYROX50 MCG PO; +MOBIC15 MG PO; +ONDA4ODT MM; +ROPINIROLE HCL2 M1 PO
[2023-05-14] MEDS ORDERED: AMITRIPTYLINE H25 MG PO (10:19)
[2023-05-14] MEDS ORDERED: OXYCODONE-ACET1 EAC2 PO (10:19)
[2023-05-14 10:34] LABS: BASOPHILS ABSOLUTE AUTO 0.05 K/mm3 (0.00-0.23); BASOPHILS PERCENT AUTO 0 % (0-2); EOSINOPHILS ABSOLUTE AUTO 0.13 K/mm3 (0.00-0.68); EOSINOPHILS PERCENT AUTO 1 % (0-6); Hematocrit 42.7 % (33.0-51.0); Hemoglobin 13.4 g/dL (11.5-16.0); IMMATURE GRAN ABSOLUTE AUTO 0.04 K/mm3 (0.00-0.10); IMMATURE GRAN PERCENT AUTO 0 % (0-1); LYMPHOCYTES ABSOLUTE AUTO 1.94 K/mm3 (0.84-5.20); LYMPHOCYTES PERCENT AUTO 14 % (21-46); MONOCYTES ABSOLUTE AUTO 0.81 K/mm3 (0.16-1.47); MONOCYTES PERCENT AUTO 6 % (4-13); Mean Corpuscular HGB 30.7 pg (26.0-34.0); Mean Corpuscular HGB Conc 31.4 g/dL (31.5-36.5); Mean Corpuscular Volume 98 fL (80-100); Mean Platelet Volume 9.8 fL (9.1-12.4); NEUTROPHILS ABSOLUTE AUTO 10.59 K/mm3 (1.96-9.15); NEUTROPHILS PERCENT AUTO 78 % (41-73); Platelet Count 260 K/mm3 (150-400); RDW Coefficient Variation 12.9 % (11.7-14.2); RDW Standard Deviation 46.9 fL (35.1-46.3); Red Blood Cell Count 4.37 M/mm3 (3.80-5.20); White Blood Cell Count 13.56 K/mm3 (4.00-11.30)
[2023-05-14 10:47] LABS: Albumin, Blood 3.7 g/dL (3.4-5.0); Bilirubin, Total 1.2 mg/dL (0.1-1.0); Bun/Creatinine Ratio 18.8 (12.0-20.0); Calcium, Blood 9.3 mg/dL (8.5-10.1); Creatinine, Blood 0.96 mg/dL (0.40-1.00); Globulin, Blood 3.8 g/dL (2.2-4.0); Potassium, Blood 4.2 mmol/L (3.5-5.5); Total Protein, Blood 7.5 g/dL (6.4-8.2)
[2023-05-14 14:13] VITALS: BP 155/76
--- NOTE | 2023-05-14 14:44 | NUR ---
PT ARRIVED TO UNIT FRO ED. ORIENTED TO USE OF CALL LIGHT/BED. IV FLUIDS INFUSING PER ORDERS. PT TRANSFERRED SELF FROM [facility] TO BED. CALL LIGHT IN REACH. PT RESTING IN BED, WATCHING TV.
[2023-05-14 15:38] VITALS: BP 145/90
--- NOTE | 2023-05-14 17:03 | NUR ---
SUMMARY NO ACUTE CHANGES SINCE ARRIVING TO UNIT. PT MEDICATED W/TORADOL FOR 4/10 PAIN, NOW REPORTS IMPROVED, RATING 3/10. DENIES NAUSEA. AMBULATED IN TURNER W/INSPECTOR ELECTROMECHANICAL. CALL LIGHT IN REACH.
[2023-05-14 19:03] VITALS: BP 149/79
[2023-05-15 04:24] VITALS: BP 136/76
--- NOTE | 2023-05-15 05:25 | NUR ---
SHIFT SUMMARY PT RESTED WELL T/O NIGHT. MINIMAL ABD PAIN. PERCOCET X1. REPORTS FLATUS. INDEP IN ROOM. NPO WITH IVF INFUSING PER ORDERS. CALL LIGHT WITHIN REACH.
[2023-05-15 07:35] VITALS: BP 149/81
[2023-05-15 09:24] LABS: BASOPHILS ABSOLUTE AUTO 0.03 K/mm3 (0.00-0.23); BASOPHILS PERCENT AUTO 0 % (0-2); EOSINOPHILS ABSOLUTE AUTO 0.19 K/mm3 (0.00-0.68); EOSINOPHILS PERCENT AUTO 2 % (0-6); Hematocrit 35.5 % (33.0-51.0); Hemoglobin 11.2 g/dL (11.5-16.0); IMMATURE GRAN ABSOLUTE AUTO 0.03 K/mm3 (0.00-0.10); IMMATURE GRAN PERCENT AUTO 0 % (0-1); LYMPHOCYTES ABSOLUTE AUTO 1.51 K/mm3 (0.84-5.20); LYMPHOCYTES PERCENT AUTO 18 % (21-46); MONOCYTES ABSOLUTE AUTO 0.69 K/mm3 (0.16-1.47); MONOCYTES PERCENT AUTO 8 % (4-13); Mean Corpuscular HGB 30.7 pg (26.0-34.0); Mean Corpuscular HGB Conc 31.5 g/dL (31.5-36.5); Mean Corpuscular Volume 97 fL (80-100); Mean Platelet Volume 9.6 fL (9.1-12.4); NEUTROPHILS ABSOLUTE AUTO 5.97 K/mm3 (1.96-9.15); NEUTROPHILS PERCENT AUTO 71 % (41-73); Platelet Count 200 K/mm3 (150-400); RDW Standard Deviation 46.7 fL (35.1-46.3); Red Blood Cell Count 3.65 M/mm3 (3.80-5.20); White Blood Cell Count 8.42 K/mm3 (4.00-11.30)
[2023-05-15 09:50] LABS: Albumin, Blood 2.9 g/dL (3.4-5.0); Bilirubin, Total 1.4 mg/dL (0.1-1.0); Calcium, Blood 8.8 mg/dL (8.5-10.1); Creatinine, Blood 0.79 mg/dL (0.40-1.00); Potassium, Blood 4.4 mmol/L (3.5-5.5); Total Protein, Blood 5.9 g/dL (6.4-8.2)
--- NOTE | 2023-05-15 09:50 | NUR ---
Pt. is awake in bed and welcomes my visit. Pt. is pleasant. Facilitate a life review and in the process identify common relationships in our community, in the process of this dialogue rapport is established. Pt. shares of some ofher past, and becomes emotional when speaking of those close to her that she has lost. Listen with emapthy and a calming presence. Prayed with Pt. Pt. verbalized gratitude for the spiritual care visit, and welcomed this certified green building engineer to return.
[2023-05-15 14:35] VITALS: BP 125/72
--- NOTE | 2023-05-15 16:46 | NUR ---
DISCHARGE PT DISCHARGED HOME AT APROX 1646. PT GIVEN WRITTEN AND VERBAL DISCHARGE INSTRUCTIONS AND VERBALIZED UNDERSTANDING. IV REMOVED. WC TO PRIVATE VEHICLE
== END 2023-05-15 16:45 | disposition home or self-care (01) ==
LOC: ER 09:47 → SURS 09:48
PROVIDERS: Emergency Medicine; Family Medicine; ADMIT Hospitalist
DX: K56.609 Unspecified intestinal obstruction, unspecified as to partial versus complete obstruction (principal); K85.90 Acute pancreatitis without necrosis or infection, unspecified; Z79.899 Other long term (current) drug therapy; Z88.5 Allergy status to narcotic agent; Z88.8 Allergy status to other drugs, medicaments and biological substances; Z98.84 Bariatric surgery status; Z90.13 Acquired absence of bilateral breasts and nipples; Z90.710 Acquired absence of both cervix and uterus
CPT/HCPCS: 36415; 70450; 74177; 80048; 80053; 83690; 84484; 85025; 93005; 93010; 96361; 96374-59; 96375; 99285-25; A9270; J1170; J1650; J1885; J2405; J3010; J7030; J7120; Q9967

== ENCOUNTER → 2024-09-16 | Outpatient (CLI) | payer OTHER ==
[~2024-09-16] MED LIST changes: +AMITRIPTYLINE H25 MG PO; +ROPI.25
== END ==
LOC: LAB 10:28 → LAB SHORT 10:28
DX: M79.7 Fibromyalgia (principal); G89.4 Chronic pain syndrome
CPT/HCPCS: 85651

== ENCOUNTER 2024-10-11 11:39 | Emergency (ER) | payer OTHER ==
[~2024-10-11] VITALS: Ht 160 cm; Wt 56.7 kg
[2024-10-11 12:11] LABS: BASOPHILS ABSOLUTE AUTO 0.03 K/mm3 (0.00-0.23); BASOPHILS PERCENT AUTO 0 % (0-2); EOSINOPHILS PERCENT AUTO 0 % (0-6); Hematocrit 34.3 % (33.0-51.0); Hemoglobin 11.4 g/dL (11.5-16.0); IMMATURE GRAN ABSOLUTE AUTO 0.06 K/mm3 (0.00-0.10); IMMATURE GRAN PERCENT AUTO 1 % (0-1); LYMPHOCYTES ABSOLUTE AUTO 0.88 K/mm3 (0.84-5.20); LYMPHOCYTES PERCENT AUTO 8 % (21-46); MONOCYTES ABSOLUTE AUTO 1.02 K/mm3 (0.16-1.47); MONOCYTES PERCENT AUTO 9 % (4-13); Mean Corpuscular HGB 31.3 pg (26.0-34.0); Mean Corpuscular HGB Conc 33.2 g/dL (31.5-36.5); Mean Corpuscular Volume 94 fL (80-100); Mean Platelet Volume 9.3 fL (9.1-12.4); NEUTROPHILS ABSOLUTE AUTO 9.47 K/mm3 (1.96-9.15); NEUTROPHILS PERCENT AUTO 83 % (41-73); Platelet Count 221 K/mm3 (150-400); RDW Coefficient Variation 14.1 % (11.7-14.2); RDW Standard Deviation 49.5 fL (35.1-46.3); Red Blood Cell Count 3.64 M/mm3 (3.80-5.20); White Blood Cell Count 11.46 K/mm3 (4.00-11.30)
[2024-10-11 12:28] LABS: Albumin, Blood 2.8 g/dL (3.4-5.0); Albumin/Globulin Ratio 0.6 (0.8-1.8); Bilirubin, Total 0.9 mg/dL (0.1-1.0); Bun/Creatinine Ratio 16.9 (12.0-20.0); Calcium, Blood 8.5 mg/dL (8.5-10.1); Creatinine, Blood 0.83 mg/dL (0.40-1.00); Globulin, Blood 4.4 g/dL (2.2-4.0); Potassium, Blood 3.6 mmol/L (3.5-5.5); Total Protein, Blood 7.2 g/dL (6.4-8.2)
[2024-10-11 12:47] LABS: Influenza A, PCR NEGATIVE (NEGATIVE); Influenza B, PCR NEGATIVE (NEGATIVE); Resp Syncytial Virus, PCR NEGATIVE (NEGATIVE); SARS-Cov-2 (COVID-19) PCR, MMC NEGATIVE (NEGATIVE)
[2024-10-11] MEDS ORDERED: Ondansetron HCl 2 MG / ML 2ML Vial IV ONE (12:50)
[2024-10-11] MEDS ORDERED: NS 1,000 ML IV SCH (12:50)
[2024-10-11 13:11] VITALS: BP 142/65
[2024-10-11] MEDS ORDERED: Magnesium Sulf 2 GM/Water 50ML 50 ML IV ONE (14:35)
[2024-10-11] MEDS ORDERED: Potassium Chloride 20 MEQ/15 ML UDC PO ONE (14:35)
[2024-10-11 16:17] LABS: Source, Urine Straight Cath
[2024-10-11 16:23] LABS: Appearance, Urine Clear (Clear); Bilirubin, Urine Neg (Neg); Blood, Urine 4+ (Neg); Color, Urine Yellow (P-Yellow); Glucose Qualitative, Urine Neg (Neg); Ketones, Urine Neg (Neg); Leukocyte Esterase, Urine Neg (Neg); Nitrite, Urine Neg (Neg); Protein, Urine 2+ (Neg); Specific Gravity, Urine 1.015 (1.003-1.022); Urobilinogen, Urine 1+ (Normal)
[2024-10-11 16:29] LABS: White Blood Cells, Urine 0-2 /hpf (0-5)
[2024-10-11 16:30] LABS: Bacteria Mod /hpf; Mucus Light (0-Heavy); Red Blood Cells, Urine 0-2 /hpf (0-2); Squamous Epithelial Cells Few /hpf (Few)
== END 2024-10-11 17:29 | disposition home or self-care (01) ==
LOC: ER 11:39
PROVIDERS: Emergency Medicine; Physician Assistant
DX: E86.0 Dehydration (principal); R53.1 Weakness; R10.9 Unspecified abdominal pain; R11.0 Nausea; M32.9 Systemic lupus erythematosus, unspecified; M06.9 Rheumatoid arthritis, unspecified; E03.9 Hypothyroidism, unspecified; K21.9 Gastro-esophageal reflux disease without esophagitis; M81.0 Age-related osteoporosis without current pathological fracture; Z87.891 Personal history of nicotine dependence; Z98.84 Bariatric surgery status; Z88.5 Allergy status to narcotic agent; Z88.8 Allergy status to other drugs, medicaments and biological substances; Z79.890 Hormone replacement therapy; Z79.899 Other long term (current) drug therapy
CPT/HCPCS: 0241U; 74177; 80053; 81001; 83735; 85025; 87086; 93005; 93010; 96361; 96365-59; 96375; 99285-25; A9270; J2405; J3475; J7030; Q9967

== ENCOUNTER 2024-10-14 09:31 | Emergency (ER) | payer OTHER ==
[~2024-10-14] VITALS: Ht 160 cm; Wt 54.4 kg
[2024-10-14 10:01] LABS: BASOPHILS ABSOLUTE AUTO 0.03 K/mm3 (0.00-0.23); BASOPHILS PERCENT AUTO 0 % (0-2); EOSINOPHILS ABSOLUTE AUTO 0.00 K/mm3 (0.00-0.68); EOSINOPHILS PERCENT AUTO 0 % (0-6); Hematocrit 35.7 % (33.0-51.0); Hemoglobin 11.5 g/dL (11.5-16.0); IMMATURE GRAN ABSOLUTE AUTO 0.19 K/mm3 (0.00-0.10); IMMATURE GRAN PERCENT AUTO 1 % (0-1); LYMPHOCYTES ABSOLUTE AUTO 1.38 K/mm3 (0.84-5.20); LYMPHOCYTES PERCENT AUTO 10 % (21-46); MONOCYTES ABSOLUTE AUTO 1.32 K/mm3 (0.16-1.47); MONOCYTES PERCENT AUTO 9 % (4-13); Mean Corpuscular HGB Conc 32.2 g/dL (31.5-36.5); Mean Corpuscular Volume 96 fL (80-100); NEUTROPHILS ABSOLUTE AUTO 11.45 K/mm3 (1.96-9.15); NEUTROPHILS PERCENT AUTO 80 % (41-73); NRBC ABSOLUTE 0.00 K/mm3 (0.00-0.02); NRBC Auto 0.0 /100 WBC (0.0-0.2); Platelet Count 276 K/mm3 (150-400); RDW Coefficient Variation 14.3 % (11.7-14.2); RDW Standard Deviation 50.2 fL (35.1-46.3)
[2024-10-14 10:33] LABS: Alanine Aminotransfer (ALT/SGP 45.0 U/L (12-78); Albumin, Blood 2.6 g/dL (3.4-5.0); Albumin/Globulin Ratio 0.6 (0.8-1.8); Anion Gap 10.0 mmol/L (3-11); Aspartate Aminotrans (AST/SGOT 57.0 U/L (12-37); Bilirubin, Total 1.0 mg/dL (0.1-1.0); Blood Urea Nitrogen 12.0 mg/dL (8-24); CO2, Blood 25.0 mmol/L (21-32); Calcium, Blood 8.5 mg/dL (8.5-10.1); Chloride, Blood 99.0 mmol/L (98-108); Creatinine, Blood 0.91 mg/dL (0.40-1.00); Globulin, Blood 4.7 g/dL (2.2-4.0); Glucose, Blood 121.0 mg/dL (70-99); Magnesium, Blood 1.5 mg/dL (1.6-2.4); Potassium, Blood 4.1 mmol/L (3.5-5.5); Sodium, Blood 130.0 mmol/L (136-145); Total Protein, Blood 7.3 g/dL (6.4-8.2)
[2024-10-14] MEDS ORDERED: NS 1,000 ML IV SCH (10:55)
[2024-10-14] MEDS ORDERED: Magnesium Sulf 2 GM/Water 50ML 50 ML IV ONE (10:55)
[2024-10-14 14:24] LABS: Source, Urine Clean Catch
[2024-10-14 15:10] LABS: Bilirubin, Urine Neg (Neg); Color, Urine Yellow (P-Yellow); Glucose Qualitative, Urine 1+ (Neg); Ketones, Urine 1+ (Neg); Leukocyte Esterase, Urine Neg (Neg); Protein, Urine 2+ (Neg); Specific Gravity, Urine 1.030 (1.003-1.022); Urobilinogen, Urine NORM (Normal)
[2024-10-14 15:17] LABS: White Blood Cells, Urine 0-2 /hpf (0-5)
[2024-10-14 15:30] VITALS: BP 167/91
[2024-10-14] MEDS ORDERED: CEFP200 PO (16:01)
[2024-10-14] MEDS ORDERED: CefTRIAXone 1000 MG Vial IM ONE (16:05)
[2024-10-14] MEDS ORDERED: NS 1,000 ML IV ONE (16:28)
[2024-10-14 17:25] LABS: Anion Gap 11.0 mmol/L (3-11); Blood Urea Nitrogen 12.0 mg/dL (8-24); CO2, Blood 24.0 mmol/L (21-32); Calcium, Blood 8.3 mg/dL (8.5-10.1); Chloride, Blood 99.0 mmol/L (98-108); Creatinine, Blood 0.81 mg/dL (0.40-1.00); Glucose, Blood 133.0 mg/dL (70-99); Magnesium, Blood 1.9 mg/dL (1.6-2.4); Potassium, Blood 4.0 mmol/L (3.5-5.5); Sodium, Blood 130.0 mmol/L (136-145)
== END 2024-10-14 17:39 | disposition home or self-care (01) ==
LOC: ER 09:31
PROVIDERS: Physician Assistant
DX: E83.42 Hypomagnesemia (principal); D72.829 Elevated white blood cell count, unspecified; R53.1 Weakness; M06.9 Rheumatoid arthritis, unspecified; M32.9 Systemic lupus erythematosus, unspecified; E03.9 Hypothyroidism, unspecified; K21.9 Gastro-esophageal reflux disease without esophagitis; M81.0 Age-related osteoporosis without current pathological fracture; Z87.891 Personal history of nicotine dependence; Z88.5 Allergy status to narcotic agent; Z88.8 Allergy status to other drugs, medicaments and biological substances; Z79.890 Hormone replacement therapy; Z79.899 Other long term (current) drug therapy
CPT/HCPCS: 71046; 80048; 80053; 81001; 83735; 83880; 84484; 85025; 93005; 93010; 96372; 96374; 99284-25; J0696; J3475; J7030

== ENCOUNTER 2024-12-16 11:39 | Day surgery (SDC) | payer OTHER ==
[~2024-12-16] VITALS: Ht 160 cm; Wt 56.3 kg
[2024-12-16] VITALS (10 sets, daily range): BP systolic 153–163; BP diastolic 75–94
[~2024-12-16 11:39] MED LIST changes: +AMIT50 PO; -AMITRIPTYLINE H25 MG PO; +CEFP200 PO; -ROPINIROLE HCL2 M1 PO; +ROPINIROLE HCL3 M3 PO
--- NOTE | 2024-12-16 15:04 | NUR ---
Ambulatory in Day Surgery History, Chart, Medications and Allergies reviewed before start of procedure. Pre-Op teaching done. Pt verbalizes understanding. Patient States Post-Procedure ride home has been arranged.
[2024-12-16] MEDS ORDERED: CeFAZolin Sodium 2,000 MG in NS 100 ML IV SCH (15:05)
[2024-12-16] MEDS ORDERED: Dexamethasone Sod Phos 10 MG/ML 1ML VIAL ONE ×2 (15:34→16:53)
[2024-12-16] MEDS ORDERED: Bupivacaine HCl 0.25% 30 ML Injection ONE (15:34)
[2024-12-16] MEDS ORDERED: Midazolam HCl 1MG / ML 2ML Vial ONE (15:35)
[2024-12-16] MEDS ORDERED: FentaNYL Citrate 50 MCG/ML 2 ML Injection ONE (16:52)
[2024-12-16] MEDS ORDERED: Ondansetron HCl 2 MG / ML 2ML Vial ONE (16:53)
[2024-12-16] MEDS ORDERED: Ketorolac Tromethamine 30mg Vial ONE (16:53)
[2024-12-16] MEDS ORDERED: ePHEDrine Sulfate 50 MG/ML 1ML Injection ONE (17:01)
== END 2024-12-16 23:00 | disposition home or self-care (01) ==
LOC: ORD 11:39 → ORSCMMR 11:39 → ORD 23:00
PROVIDERS: Orthopaedic Surgery
PROC: 0PSJ04Z Reposition Left Radius with Internal Fixation Device, Open Approach (ICD-10-PCS; principal; 2024-12-16 16:30)
DX: S52.552A Other extraarticular fracture of lower end of left radius, initial encounter for closed fracture (principal); W01.0XXA Fall on same level from slipping, tripping and stumbling without subsequent striking against object, initial encounter; I10 Essential (primary) hypertension; M32.9 Systemic lupus erythematosus, unspecified; M79.7 Fibromyalgia; Z79.899 Other long term (current) drug therapy; E07.9 Disorder of thyroid, unspecified
CPT/HCPCS: C1713; J0690; J1100; J1885; J2250; J2405; J2704; J3010; J7120